=== PATIENT | male | born 1960 | race African-American/Black ===

== ENCOUNTER 2018-03-07 06:15 | Emergency (ER) | payer OTHER ==
[~2018-03-07] VITALS: Ht 167.6 cm; Wt 126.6 kg
[2018-03-07 06:37] VITALS: BP 191/135
[2018-03-07] MEDS ORDERED: HYDR25TA6 PO (06:39)
[2018-03-07] MEDS ORDERED: LISI40TA PO (06:39)
[2018-03-07] MEDS ORDERED: METO25TA35 PO (06:39)
[2018-03-07] MEDS ORDERED: AMLO10TA6 PO (06:39)
[2018-03-07] MEDS ORDERED: CLON0.1T22 PO (06:39)
[2018-03-07] MEDS ORDERED: LISINOPRIL 20 MG TABLET ONE (06:45)
[2018-03-07] MEDS ORDERED: AMLODIPINE 5 MG TABLET ONE (06:45)
[2018-03-07] MEDS ORDERED: HYDROCHLOROTHIAZIDE 25 MG TABLET PO ONE (07:00)
[2018-03-07] MEDS ORDERED: LISINOPRIL 20 MG TABLET PO SCH (07:00)
[2018-03-07] MEDS ORDERED: AMLODIPINE 5 MG TABLET PO ONE (07:00)
[2018-03-07 07:04] LABS: RAPID INFLUENZA A Negative (Negative); RAPID INFLUENZA B Negative (Negative)
== END 2018-03-07 08:45 | disposition home or self-care (01) ==
LOC: ED 08:16
DX: I10 Essential (primary) hypertension (principal)
CPT/HCPCS: 87400; 93005; 99284

== ENCOUNTER 2018-04-22 13:35 | Emergency (ER) | payer OTHER ==
[~2018-04-22] VITALS: Ht 182.9 cm; Wt 124.9 kg
[~2018-04-22 13:35] MED LIST: AMLO10TA8 PO; CLON0.1T22 PO; HYDR25TA6 PO; LISI40TA PO; METO25TA35 PO
--- NOTE | 2018-04-22 13:48 | NUR ---
TO RM 2 FROM LOBBY UPPER LIP SWELLING THAT PT STATES STARTED AT 0900. AIRWAY STABLE WITH NO DIFFICULTY BREATHING. AWAITING MD GOLDMAN. WILL CONTINUE TO EVALUATE
[2018-04-22] MEDS ORDERED: FAMOTIDINE 20 MG/2 ML IVPush ONE (14:00)
[2018-04-22] MEDS ORDERED: DIPHENHYDRAMINE 50 MG/ML, 1ML IVPush ONE (14:00)
[2018-04-22] MEDS ORDERED: DEXAMETHASONE 4 MG/ML, 1ML IVPush ONE (14:00)
[2018-04-22] MEDS ORDERED: SODIUM CHLORIDE FLUSH 10ML SYR IVF ONE (14:00)
[2018-04-22] MEDS ORDERED: DEXAMETHASONE 4 MG/ML, 5ML ONE (14:06)
[2018-04-22] MEDS ORDERED: DIPHENHYDRAMINE 50 MG/ML, 1ML ONE (14:06)
[2018-04-22] MEDS ORDERED: FAMOTIDINE 20 MG/2 ML ONE (14:07)
--- NOTE | 2018-04-22 14:16 | NUR ---
IV STARTED. PT MEDICATED PER MAY. RIGHTS VERIFIED PRIOR.
--- NOTE | 2018-04-22 14:44 | NUR ---
AFTER MEDICATED PER ORDERS PT SLEEPING. CONTINUE TO MONITOR. NO CHANGE IN LIP SWELLING AND DENIES THROAT OR TONGUE SWELLING
[2018-04-22 15:45] VITALS: BP 130/81
--- NOTE | 2018-04-22 15:46 | NUR ---
PT GIVEN D/C PAPERWORK. PT VERBALIZED UNDERSTANDING. AWARE TO STOP LISINOPRIL.
== END 2018-04-22 15:47 | disposition home or self-care (01) ==
LOC: ED 14:27
DX: T78.3XXA Angioneurotic edema, initial encounter (principal); I10 Essential (primary) hypertension; Y92.9 Unspecified place or not applicable
CPT/HCPCS: 96374; 96375; 99283; J1100; J1200; J3490

== ENCOUNTER 2018-04-23 01:13 | Inpatient (IN) | payer OTHER ==
[2018-04-23] VITALS (7 sets, daily range): BP systolic 144–154; BP diastolic 84–105
[~2018-04-23] VITALS: Ht 185.4 cm; Wt 122.7 kg
[2018-04-23] MEDS ORDERED: FAMOTIDINE 20 MG/2 ML ONE (01:18)
[2018-04-23] MEDS ORDERED: EPINEPHRINE 1 MG/ML, 1ML ONE (01:18)
[2018-04-23] MEDS ORDERED: DIPHENHYDRAMINE 50 MG/ML, 1ML ONE (01:18)
[2018-04-23] MEDS ORDERED: methylPREDNISolone SOD SUCC 125 MG/2 ML IVPush STA (01:33)
[2018-04-23] MEDS ORDERED: methylPREDNISolone SOD SUCC 125 MG/2 ML ONE (01:38)
--- NOTE | 2018-04-23 01:45 | NUR ---
PT LIPS ARE LARGE AND SWOLLEN. PT REPORTS HE WOKE UP IN THE MIDDLE OF THE NIGHT TO USE THE BATHROOM AND SAW HIS LIPS WERE SWOLLEN. PT WAS SEEN HERE YESTERDAY FOR SAME. PT REPORTS HE TAKES 40 MG OF LISINOPRIL. PT'S LAST DOSE WAS YESTERDAY MORNING. VS STABLE. NO TOUNGE SWELLING. 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 NSR NOTED. PULSE OX ON. PULSE OX 95%. PT SEEN BY DR HORAN. CALL LIGHT IN PLACE. WILL CONTINUE TO MONITOR.
--- NOTE | 2018-04-23 01:58 | NUR ---
PURPLE BLOOD BANK SLIP SENT
[2018-04-23 01:59] LABS: MEAN CORPUSCULAR HEMOGLOBIN 28.6 pg (27.5-34.5); MEAN CORPUSCULAR HGB CONC 32.9 g/dL (33.2-36.2); MEAN CORPUSCULAR VOLUME 86.8 fL (81-97); MEAN PLATELET VOLUME 9.3 fL (7.4-10.4); PLATELET COUNT 332 x10^3/uL (130-400); RED BLOOD COUNT 5.49 x10^6/uL (4.38-5.82); RED CELL DISTRIBUTION WIDTH 13.3 % (9.4-14.8)
[2018-04-23 02:00] LABS: INTERNATIONAL NORMALIZED RATIO 0.97 (0.93-1.1); PROTHROMBIN TIME 10.3 Seconds (9.6-11.5)
[2018-04-23] MEDS ORDERED: FAMOTIDINE 20 MG/2 ML IVPush ONE (02:00)
[2018-04-23] MEDS ORDERED: DIPHENHYDRAMINE 50 MG/ML, 1ML IVPush ONE (02:00)
[2018-04-23 02:02] LABS: ALANINE AMINOTRANSFERASE 32 U/L (12-78); ALBUMIN 3.4 g/dL (3.4-5.0); ANION GAP 6 mmol/L (5-15); CALCIUM 9.2 mg/dL (8.5-10.1); CHLORIDE 108 mmol/L (98-107); CREATININE 1.44 mg/dL (0.7-1.3)
[2018-04-23 02:04] LABS: ALKALINE PHOSPHATASE 70 U/L (45-117); BILIRUBIN,TOTAL 0.4 mg/dL (0.2-1.0); TOTAL PROTEIN 8.5 g/dL (6.4-8.2)
[2018-04-23 02:22] LABS: MD YES
--- NOTE | 2018-04-23 02:23 | NUR ---
PT RESTING IN ROOM. VS STABLE. 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 NSR NOTED. CALL LIGHT IN PLACE. IWLL CONTINUE TO MONITOR.
[2018-04-23 02:26] LABS: <PLATELET ESTIMATE> ADEQUATE; <PLT MORPHOLOGY> NORMAL PLT MORPH; <RBC MORPHOLOGY> NORMAL; LYMPH#(MANUAL) 1.92 x10^3/uL (1-3.4); LYMPHS% (MANUAL) 15 % (22-44); MONOS#(MANUAL) 0.51 x10^3/uL (0.3-2.7); MONOS% (MANUAL) 4 % (2-9); SEG#(MANUAL) 10.37 x10^3/uL (1.8-6.8); SEGS% (MANUAL) 81 % (42-75)
--- NOTE | 2018-04-23 02:42 | NUR ---
EMERGENT FFP STARTED PER DR HORAN
--- NOTE | 2018-04-23 02:45 | NUR ---
LAB IN ROOM
--- NOTE | 2018-04-23 02:58 | NUR ---
PT RESTING IN ROOM. NO ACUTE DISTRESS NOTED. CALL LIGHT IN PLACE. WILL CONTINUE TO MONITOR.
--- NOTE | 2018-04-23 03:20 | NUR ---
INFUSION STOPPED. PT RESTING IN ROOM. LIPS ARE STILL SWOLLEN. PT IS ABLE TO TALK. TOUNGE IS NOT SWOLLEN. VS STABLE. CALL LIGHT IN PLACE. WILL CONTINUE TO MONITOR.
--- NOTE | 2018-04-23 03:45 | NUR ---
DR HORAN IN ROOM UPDATING PATIENT.
[2018-04-23] MEDS ORDERED: SODIUM CHLORIDE 0.9% 1,000 ML IV SCH (04:23)
--- NOTE | 2018-04-23 04:23 | NUR ---
BREAK RN: PT RESTING IN BED, NO STATED NEEDS AT THIS TIME. NO NOTED RXN TO BLOOD PRODUCTS AT THIS TIME. HOSPITALIST IN TO EVAL PT. BILAT BEDRAILS UP.
[2018-04-23] MEDS ORDERED: ACETAMINOPHEN 325 MG TABLET PO PRN (04:30)
[2018-04-23] MEDS ORDERED: ONDANSETRON 2MG/ML, 2ML IVPush PRN (04:30)
[2018-04-23] MEDS ORDERED: GUAIFENESIN/DM 200-20MG, 10ML UDC PO PRN (04:30)
[2018-04-23] MEDS ORDERED: POLYETHYLENE GLYCOL 17 GM PACKET PO PRN (04:30)
[2018-04-23] MEDS: methylPREDNISolone SOD SUCC 125 MG/2 ML IVPush SCH ×3 (06:08→17:34)
[2018-04-23] MEDS: DIPHENHYDRAMINE 50 MG/ML, 1ML IVPush PRN (06:08)
[2018-04-23] MEDS: hydrALAzine 20 MG/ML, 1ML IVPush PRN (06:09)
[2018-04-23] MEDS ORDERED: FAMOTIDINE 20 MG/2 ML IVPush SCH (09:00)
[2018-04-23] MEDS: AMLODIPINE 10 MG TAB PO SCH (09:18)
[2018-04-23] MEDS: HYDROCHLOROTHIAZIDE 25 MG TABLET PO SCH (09:19)
[2018-04-23] MEDS: METOPROLOL TARTRATE 100 MG TABLET PO SCH ×2 (09:19→20:37)
[2018-04-23] MEDS: FAMOTIDINE 20 MG TABLET PO SCH (20:37)
[2018-04-24] MEDS: methylPREDNISolone SOD SUCC 125 MG/2 ML IVPush SCH ×2 (00:33→06:04)
[2018-04-24] MEDS: hydrALAzine 20 MG/ML, 1ML IVPush PRN (00:33)
[2018-04-24 01:30] VITALS: BP 169/109
[2018-04-24] MEDS: DIPHENHYDRAMINE 50 MG/ML, 1ML IVPush PRN (01:40)
[2018-04-24 02:00] VITALS: BP 147/100
[2018-04-24 04:38] LABS: ANION GAP 7 mmol/L (5-15); CALCIUM 9.4 mg/dL (8.5-10.1); CHLORIDE 107 mmol/L (98-107); CREATININE 1.33 mg/dL (0.7-1.3)
[2018-04-24] MEDS: AMLODIPINE 10 MG TAB PO SCH (07:55)
[2018-04-24] MEDS: METOPROLOL TARTRATE 100 MG TABLET PO SCH (07:55)
[2018-04-24] MEDS: HYDROCHLOROTHIAZIDE 25 MG TABLET PO SCH (07:55)
[2018-04-24] MEDS: FAMOTIDINE 20 MG TABLET PO SCH (07:55)
[2018-04-24 08:07] VITALS: BP 133/104
[2018-04-24] MEDS ORDERED: DOXA2TAB PO (09:16)
[2018-04-24] MEDS ORDERED: DOXAZOSIN 2MG TABLET PO SCH (09:30)
== END 2018-04-24 10:15 | disposition home or self-care (01) | DRG 916 ==
LOC: ED 02:00 → EDIP 03:52 → CCU 04:54 → DCLOUNGE 04-24 09:55
PROVIDERS: ADMIT Hospitalist; ATTEND Hospitalist
DX: T78.3XXA Angioneurotic edema, initial encounter (principal); Z79.899 Other long term (current) drug therapy; I12.9 Hypertensive chronic kidney disease with stage 1 through stage 4 chronic kidney disease, or unspecified chronic kidney disease; N18.9 Chronic kidney disease, unspecified; Z86.73 Personal history of transient ischemic attack (TIA), and cerebral infarction without residual deficits; T46.4X5A Adverse effect of angiotensin-converting-enzyme inhibitors, initial encounter; Y92.89 Other specified places as the place of occurrence of the external cause
CPT/HCPCS: 36415; 99285; J3490; 36430; 80048; 80053; 83735; 84100; 85025; 85610; 86850; 86900; 87081; 96374; 96375; G0378; J0360; J1200; J2930; J7030; P9017

== ENCOUNTER → 2018-07-22 | Outpatient (CLI) | payer OTHER ==
[~2018-07-22] MED LIST changes: +DOXA2TAB PO
== END | disposition home or self-care (01) ==
LOC: CVU 10:00
PROVIDERS: ATTEND Internal Medicine Cardiovascular Disease
DX: I65.23 Occlusion and stenosis of bilateral carotid arteries (principal); I63.9 Cerebral infarction, unspecified; I10 Essential (primary) hypertension; M79.604 Pain in right leg; M79.605 Pain in left leg
CPT/HCPCS: 93306; 93880; 93922; 93975

== ENCOUNTER 2019-05-29 18:28 | Emergency (ER) | payer SELFPAY ==
[~2019-05-29] VITALS: Ht 185.4 cm; Wt 114.0 kg
[2019-05-29 18:32] VITALS: BP 157/108
== END 2019-05-29 19:28 | disposition home or self-care (01) ==
LOC: ED 18:32
DX: J20.8 Acute bronchitis due to other specified organisms (principal); I10 Essential (primary) hypertension; Z86.73 Personal history of transient ischemic attack (TIA), and cerebral infarction without residual deficits
CPT/HCPCS: 99283